=== PATIENT | female | born 1970 | race Hispanic/Latino ===

== ENCOUNTER → 2017-12-31 08:47 | Outpatient (CLI) | payer OTHER, SELFPAY ==
--- NOTE | 2017-12-31 08:56 | BI_ITS ---
MAMMOGRAPHY - UNILATERAL DIAGNOSTIC: RIGHT BREAST REASON FOR EXAM: Female, 47 years old. Abnormal screening mammogram. PERTINENT HISTORY: Prior left excisional breast biopsy. Questionable 1.1 cm nodular density in the right breast on prior outside mammogram. TECHNIQUE: Digital unilateral breast sarthak (3D mammographic acquisition) in the CC and MLO projections. 2-D mediolateral oblique (MLO) and craniocaudad (CC) views of both breasts were obtained. CAD: Full Field Digital Mammography with Computer Added Detection was performed. COMPARISON: Comparison is made with prior abdomen examination dated December 01, 2017. FINDINGS: Breast Composition: The breasts are heterogeneously dense, which may obscure small masses. There is a 6.2 mm x 7.9 mm well-defined nodule in the deep retroareolar region of the right breast. Correlation with ultrasound is recommended. No other significant abnormalities are identified. BI/DIAG MAMM W/CAD, UNILAT IMPRESSION: 6.2 mm x 7.9 mm well-defined nodule in the deep retroareolar region of the right breast as described. Correlation with ultrasound is recommended. ASSESSMENT CATEGORY: BIRADS Category 0: Incomplete. Need additional imaging evaluation. A letter regarding these results will be sent to the patient by the facility within 30 days. Approximately 10% of breast cancers are not detected by mammography. A normal mammogram should not delay biopsy of a clinically suspicious abnormality. Electronically Signed: Salinas Hwang MD at 14:59 EDT Tel [phone], Service support ,
== END ==
PROVIDERS: Visit Provider Surgery
DX: R92.8 Other abnormal and inconclusive findings on diagnostic imaging of breast (principal)
CPT/HCPCS: 77061; 77065; G0279

== ENCOUNTER → 2018-01-07 13:34 | Outpatient (CLI) | payer SELFPAY ==
--- NOTE | 2018-01-07 13:38 | US_ITS ---
STUDY: ULTRASOUND BREAST - RIGHT REASON FOR EXAM: Female, 47 years old. Abnormal screening mammogram. TECHNIQUE: Axial and longitudinal images of the RIGHT breast were performed with a high resolution ultrasound transducer. COMPARISON: Comparison is made with prior mammogram dated December 31, 2017. FINDINGS: RIGHT Breast: There is a 5 mm x 5 mm x 4 mm cyst at the 12:00 position in the breast in the retroareolar region. Adjacent to this, there is a 3 mm x 3 mm x 4 mm cyst. There is also evidence of a 1 cm x 0.4 cm x 0.4 cm benign-appearing lymph node at the 6:00 position breast in the retroareolar region.. US/Breast Limited Unilateral IMPRESSION: Benign appearing cysts and small lymph node seen in the retroareolar region of the breast as described. Routine mammographic follow-up is recommended. ASSESSMENT CATEGORY: BIRADS Category 2: Benign. A letter regarding these results will be sent to the patient by the facility within 30 days. Electronically Signed: Salinas Hwang MD at 15:15 EST Tel [phone], Service support ,
== END ==
LOC: OPUS 13:37
PROVIDERS: Referring Provider Surgery; Visit Provider Surgery
DX: R92.8 Other abnormal and inconclusive findings on diagnostic imaging of breast (principal)
CPT/HCPCS: 76642

== ENCOUNTER → 2018-02-07 07:58 | Outpatient (CLI) | payer SELFPAY ==
--- NOTE | 2018-02-07 08:01 | US_ITS ---
STUDY: ULTRASOUND OF THE FEMALE PELVIS - COMPLETE REASON FOR EXAM: Female, 47 years old. Post menopausal bleeding. LMP: Unknown. TECHNIQUE: Transabdominal and Transvaginal area despite a moderately distended urinary bladder. Detail on transabdominal scanning was limited, so additional endovaginal imaging was employed. TECHNICAL QUALITY: Adequate. COMPARISON: None. FINDINGS: The uterus is anteverted and is in a midline position. The uterus shifts to a retroverted position on endovaginal scanning. The uterus measures 6.8 x 4.9 x 4.1 cm. There is focal calcification in the uterine cervix. The endometrium measures 1.7 mm in thickness, and is hyperechoic. There is no demonstrated endometrial mass. Two moderately defined hypoechoic myometrial lesions consistent with fibroids are identified. One is in the anterior upper body/fundus, measuring 9 x 7 x 5 mm. The other is in the posterior upper body of uterus measuring 6 x 6 x 5 mm. I.U.D. - The patient does not have an I.U.D. The right ovary is visualized. The right ovary measures 2.2 x 1.6 x 1.6 cm. Includes of moderately defined 1.4 x 1.2 x 1.2 cm heterogeneous, solid-appearing lesion of indeterminate etiology. There is normal arterial and normal venous vascularity. The left ovary is visualized. The left ovary measures 1.5 x 1.5 x 1.6 cm. Includes a 1.1 x 1.0 x 1.0 cm hypoechoic cyst. There is no visualized left adnexal mass or complex lesion. There is normal arterial and normal venous vascularity. There is no fluid in the cul-de-sac. The pre void volume of the bladder was 539 ml. The post void volume of the bladder was ml. Polycystic ovary disease: No. US/Transvaginal Non- IMPRESSION: 1. 2 small endometrial fibroid in the upper body of the size uterus, as noted. 2. Age-appropriate endometrial thinning. 3. 1.4 cm solid-appearing lesion of indeterminate etiology in the right ovary. 1.1 cm complicated cyst suggested on the left. These might be further characterized with pelvic MRI. Electronically Signed: Jarett Boone MD at 19:52 EST , Service support ,
--- NOTE | 2018-02-07 08:01 | US_ITS ---
STUDY: ULTRASOUND OF THE FEMALE PELVIS - COMPLETE REASON FOR EXAM: Female, 47 years old. Post menopausal bleeding. LMP: Unknown. TECHNIQUE: Transabdominal and Transvaginal area despite a moderately distended urinary bladder. Detail on transabdominal scanning was limited, so additional endovaginal imaging was employed. TECHNICAL QUALITY: Adequate. COMPARISON: None. FINDINGS: The uterus is anteverted and is in a midline position. The uterus shifts to a retroverted position on endovaginal scanning. The uterus measures 6.8 x 4.9 x 4.1 cm. There is focal calcification in the uterine cervix. The endometrium measures 1.7 mm in thickness, and is hyperechoic. There is no demonstrated endometrial mass. Two moderately defined hypoechoic myometrial lesions consistent with fibroids are identified. One is in the anterior upper body/fundus, measuring 9 x 7 x 5 mm. The other is in the posterior upper body of uterus measuring 6 x 6 x 5 mm. I.U.D. - The patient does not have an I.U.D. The right ovary is visualized. The right ovary measures 2.2 x 1.6 x 1.6 cm. Includes of moderately defined 1.4 x 1.2 x 1.2 cm heterogeneous, solid-appearing lesion of indeterminate etiology. There is normal arterial and normal venous vascularity. The left ovary is visualized. The left ovary measures 1.5 x 1.5 x 1.6 cm. Includes a 1.1 x 1.0 x 1.0 cm hypoechoic cyst. There is no visualized left adnexal mass or complex lesion. There is normal arterial and normal venous vascularity. There is no fluid in the cul-de-sac. The pre void volume of the bladder was 539 ml. The post void volume of the bladder was ml. Polycystic ovary disease: No. US/Pelvic (Non ) IMPRESSION: 1. 2 small endometrial fibroid in the upper body of the size uterus, as noted. 2. Age-appropriate endometrial thinning. 3. 1.4 cm solid-appearing lesion of indeterminate etiology in the right ovary. 1.1 cm complicated cyst suggested on the left. These might be further characterized with pelvic MRI. Electronically Signed: Jarett Boone MD at 19:52 EST , Service support ,
== END ==
LOC: OPUS 08:01
DX: N95.0 Postmenopausal bleeding (principal)
CPT/HCPCS: 76830; 76856